=== PATIENT | female | born 1945 | race Caucasian/White ===

== ENCOUNTER 2020-11-14 16:44 | Inpatient (IN) | payer OTHER, MEDICAID, SELFPAY ==
[~2020-11-14] VITALS: Ht 167.6 cm; Wt 51.7 kg
[2020-11-14 16:44] VITALS: BP 144/78
--- NOTE | 2020-11-14 16:44 | NUR ---
PT BIBA AND PLACED IN BED 5.
[2020-11-14] MEDS ORDERED: cefTRIAXone 1,000 MG in DEXT 5% MINI-BAG PLUS 50 ML IV ONE (16:50)
[2020-11-14] MEDS ORDERED: NACL 0.9% 1,000 ML IV SCH (16:50)
--- NOTE | 2020-11-14 16:51 | NUR ---
Collected OLEG FLORES, OLEG CHAN gave to bottle labeler.
[2020-11-14] MEDS ORDERED: cefTRIAXone 1,000 MG VIAL ONE (17:00)
--- NOTE | 2020-11-14 17:02 | NUR ---
Established IV to right upper arm 20G, good blood return. Collected blood and gave to labor arbitrator at pt bedside.
--- NOTE | 2020-11-14 17:06 | NUR ---
Pt ambulated to restroom for UA collection.
[2020-11-14 17:08] LABS: BASOPHILS % (AUTO) 0.6 % (0.0-2.0); EOSINOPHILS % (AUTO) 0.5 % (0.0-4.0); HEMATOCRIT 40.6 % (36-48); HEMOGLOBIN 14.1 g/dL (12.0-16.0); LYMPHOCYTES # (AUTO) 1.5 K/uL (2.5-16.5); LYMPHOCYTES % (AUTO) 22.2 % (20.5-51.1); MEAN CORPUSCULAR HEMOGLOBIN 35 pg (27-31); MEAN CORPUSCULAR HGB CONC 35 g/dL (33-37); MONOCYTES # (AUTO) 0.4 K/uL (0.8-1.0); MONOCYTES % (AUTO) 5.9 % (1.7-9.3); NEUTROPHILS # (AUTO) 4.9 K/uL (1.8-7.7); NEUTROPHILS % (AUTO) 70.8 % (42.2-75.2); PLATELET COUNT (AUTO) 219 K/uL (140-450); RED BLOOD CELL COUNT(AUTO) 3.98 MIL/uL (4.20-5.40); RED CELL DISTRIBUTION WIDTH 13.7 % (11.6-13.7); WHITE BLOOD COUNT (AUTO) 6.9 K/uL (4.8-10.8)
--- NOTE | 2020-11-14 17:10 | NUR ---
Personal belongings inventoried and placed in belongings bag. Pt label placed on the outside and security called to take belongings. Hola from security took belongings for holding.
--- NOTE | 2020-11-14 17:14 | NUR ---
porcelain technician at pt bedside.
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
[2020-11-14 17:34] LABS: SALICYLATE 7.7 mg/dL (2.8-20.0)
--- NOTE | 2020-11-14 17:39 | NUR ---
DR AYALA AT BEDSIDE EVALUATING PT
--- NOTE | 2020-11-14 17:41 | NUR ---
TELEPSYCH CONSULT PLACED. MONITOR SET TO BEDSIDE.
[2020-11-14 17:43] LABS: ACETAMINOPHEN < 0.5 ug/ml (10-30)
[2020-11-14 17:47] LABS: ANION GAP 17.6 (8-16); CHLORIDE 99 mmol/L (98-107); CREATININE 0.9 mg/dL (0.6-1.3); GLUCOSE 106 mg/dL (74-106); POTASSIUM 3.6 mmol/L (3.5-5.1); SODIUM SERUM 136 mmol/L (136-145); UREA NITROGEN, BLOOD 9 mg/dL (7-18)
[2020-11-14 17:52] LABS: ALBUMIN 3.2 g/dL (3.4-5.0); ASPARTATE AMINOTRANSFERASE 14 U/L (15-37)
[2020-11-14 18:08] LABS: TOTAL BILIRUBIN 0.7 mg/dL (0.0-1.0)
--- NOTE | 2020-11-14 18:20 | NUR ---
Taken to CT via riri
--- NOTE | 2020-11-14 18:29 | NUR ---
Patient returned from CT via gurney. Placed back onto cardiac surgeon; IVF and IV ABX continued. Bed locked in lowest position, side rails x 2, call light in reach.
[2020-11-14 18:47] LABS: BARBITURATE, URINE NEGATIVE ng/ml (NEG <=200); BENZODIAZEPINE, URINE NEGATIVE ng/mL (NEG <=200); CANNABINOID, URINE NEGATIVE ng/mL (NEG <=50); COCAINE, URINE NEGATIVE ng/mL (NEG <=300); OPIATE, URINE NEGATIVE ng/mL (NEG <=2000); PHENCYCLIDINE SCREEN,URINE NEGATIVE ng/mL (NEG <=25)
[2020-11-14 18:49] LABS: APPEARANCE,URINE CLEAR (CLEAR); BILIRUBIN,URINE NEGATIVE (NEGATIVE); BLOOD, URINE NEGATIVE (NEGATIVE); COLOR,URINE YELLOW (YELLOW); LEUKOCYTE ESTERASE ,URINE NEGATIVE (NEGATIVE); NITRITE, URINE NEGATIVE (NEGATIVE); UGLUCOSE NEGATIVE (NEGATIVE)
--- NOTE | 2020-11-14 19:14 | NUR ---
Pt report given to Roro. Transfer of care at this time.
--- NOTE | 2020-11-14 19:15 | NUR ---
RECIEVED REPORT FROM CHRYSTAL LAMA FOR CONTINUITY OF CARE.
--- NOTE | 2020-11-14 19:18 | NUR ---
JORDON, WITH ASSOCIATE TELEMED CALLED - DUE TO HIGH CALL VOLUME THERE WILL BE A DELAY ON THE PSYCH CONSULT; PER REQUEST CANCELLED DUE TO PT BEING ADMITTED
--- NOTE | 2020-11-14 19:25 | NUR ---
PT AMBULATED TO RESTROOM AND BACK TO BED WITH STEADY GAIT.
--- NOTE | 2020-11-14 19:49 | NUR ---
ATTEMPTED TO CALL PTS SONASHER WITH # ON FILE WELL # PROVIDED BY PT ([phone]). PHONE NUMBER ON FILE IS INCORRECT, AND NO ANSWER ON OTHER # PROVIDED.
--- NOTE | 2020-11-14 19:53 | NUR ---
Patient will be admitted to care of MD FRANCISCA. Admited to [facility]. Will go to room 106A. Belongings list completed. Report to CHRYSTAL PEPPER.
--- NOTE | 2020-11-14 19:58 | NUR ---
PT TAKEN TO [facility] 106A VIA W.C. WITH RAYMUNDO RUIZ.
[2020-11-14 20:05] VITALS: BP 145/90
--- NOTE | 2020-11-14 20:05 | NUR ---
PT ARRIVED TO UNIT VIA WHEELCHAIR. PT IS MED SURG PT. AWAKE AND ALERT. A&OX3. RESPONDS TO QUESTIONS APPROPRIATELY. ON RA WITH BREATHING UNLABORED. NO RESPIRATORY DISTRESS NOTED. PT IS AMBULATORY WITH ASSISTANCE. SKIN IS WARM, DRY, AND INTACT. IV IS IN THE RIGHT AC 20 GAUGE SALINE LOCKED. PLAN OF CARE DISCUSSED. FALL PRECAUTIONS WILL BE PUT IN PLACE. PT IS STABLE. WILL MONITOR. BED ALARM ON.
[2020-11-14] MEDS: DEXT 5% /NACL 0.9% 1,000 ML IV SCH (21:00)
--- NOTE | 2020-11-14 21:00 | NUR ---
CHARGE NURSE, STEPHANIE RN, SPOKE WITH SON OF PT REQUESTED BY PT. ANEESH'S PHONE NUMBER . ADMISSION QUESTIONS ASKED. SON IS NOW AWARE OF ADMISSION TO HOSPITAL. ALL QUESTIONS ANSWERED.
[2020-11-14] MEDS ORDERED: DOCUSATE SODIUM 100 MG GELCAP PO PRN (21:20)
[2020-11-14] MEDS ORDERED: ONDANSETRON 4 MG/2 ML VIAL IM/IVP PRN (21:20)
[2020-11-14] MEDS ORDERED: guaiFENesin DM 200/20 MG-10 ML 10 ML UDC PO PRN (21:20)
[2020-11-14] MEDS ORDERED: ACETAMINOPHEN 325 MG TAB PO PRN (21:20)
[2020-11-14] MEDS ORDERED: HYDROcodone/APAP 7.5/325 MG 1 TAB PO PRN (21:20)
[2020-11-14 21:50] LABS: PROTHROMBIN TIME 9.4 secs (10.8-13.4)
[2020-11-14] MEDS: lisinopriL 20 MG TAB PO SCH (21:52)
[2020-11-14] MEDS: NACL 0.9% 1,000 ML IV SCH (21:55)
[2020-11-14 22:00] LABS: CHOL/HDL RATIO 1.9 (1-4.5); FREE T4 (FREE THYROXINE) 1.13 ng/dL (0.76-1.46); MAGNESIUM 1.9 mg/dL (1.8-2.4); PHOSPHORUS 3.1 mg/dL (2.5-4.9); THYROID STIMULATING HORMONE 4.14 uIU/mL (0.34-3.74)
--- NOTE | 2020-11-14 23:00 | NUR ---
PT IS STABLE. NO DISTRESS NOTED. PT SAYS SHE WANTS TO GO HOME IN THE MORNING. PT IS CONCERNED FOR CATS AT HOME. BED IS IN THE LOWEST POSITION AND CALL LIGHT WITHIN REACH. PT INSTRUCTED TO CALL [employer] THERAPIST LIGHT FOR HELP WHEN NEEDING TO AMBULATE.
--- NOTE | 2020-11-15 01:19 | NUR ---
ROUNDED ON PT. SHE IS NOW IN ROOM 109 B, CLOSER TO NURSES STATION PT KEPT GETTING UP FROM BED WITHOUT CALLING. PT IS FALL RISK. BED ALARM ON. NO DISTRESS NOTED. PT IS SLEEPING IN SEMI FOWLERS POSITION. NO PAIN NOTED EITHER. WILL CONTINUE TO MONITOR.
--- NOTE | 2020-11-15 03:30 | NUR ---
PT IS ASLEEP. BREATHING IS UNLABORED. IV FLUIDS ARE INFUSING ORDERED. BED ALARM ON. PT STABLE.
[2020-11-15 04:00] VITALS: BP 126/75
--- NOTE | 2020-11-15 05:30 | NUR ---
PT IS UP TO THE RESTROOM WITH IV POLE. PT'S GAIT IS UNSTEADY. STANDBY ASSISTANCE IS PROVIDED TO ENSURE SAFETY. PT IS STABLE. NO DISTRESS NOTED. A&OX3.
[2020-11-15 06:34] LABS: BASOPHILS # (AUTO) 0.1 K/uL (0.00-0.22); BASOPHILS % (AUTO) 0.9 % (0.0-2.0); EOSINOPHILS # (AUTO) 0.1 K/uL (0-0.4); EOSINOPHILS % (AUTO) 0.9 % (0.0-4.0); HEMATOCRIT 40.2 % (36-48); HEMOGLOBIN 13.9 g/dL (12.0-16.0); LYMPHOCYTES # (AUTO) 1.8 K/uL (2.5-16.5); LYMPHOCYTES % (AUTO) 27.6 % (20.5-51.1); MEAN CORPUSCULAR HEMOGLOBIN 35 pg (27-31); MEAN CORPUSCULAR HGB CONC 34 g/dL (33-37); MEAN CORPUSCULAR VOLUME 101.4 fL (80-94); MONOCYTES # (AUTO) 0.5 K/uL (0.8-1.0); MONOCYTES % (AUTO) 7.1 % (1.7-9.3); NEUTROPHILS % (AUTO) 63.5 % (42.2-75.2); PLATELET COUNT (AUTO) 191 K/uL (140-450); RED BLOOD CELL COUNT(AUTO) 3.97 MIL/uL (4.20-5.40); RED CELL DISTRIBUTION WIDTH 13.9 % (11.6-13.7); WHITE BLOOD COUNT (AUTO) 6.4 K/uL (4.8-10.8)
[2020-11-15 06:58] LABS: ANION GAP 10.8 (8-16); CARBON DIOXIDE 25.1 mmol/L (21-32); CHLORIDE 106 mmol/L (98-107); CREATININE 0.8 mg/dL (0.6-1.3); GLUCOSE 91 mg/dL (74-106); POTASSIUM 3.9 mmol/L (3.5-5.1); SODIUM SERUM 138 mmol/L (136-145); UREA NITROGEN, BLOOD 8 mg/dL (7-18)
--- NOTE | 2020-11-15 07:10 | NUR ---
ENDORSED PT TO DAY SHIFT NURSE FOR CONTINUITY OF CARE. PT IS STABLE AT THIS TIME. PLAN OF CARE DISCUSSED.
--- NOTE | 2020-11-15 07:27 | NUR ---
RECEIVED REPORT FROM SURFACE WATER MANAGER FOR CONTINUITY OF CARE. POC DISCUSSED. PT IS CURRENTLY USING THE RESTROOM WITH NO SIGNS OF ACUTE DISTRESS. ON ROOM AIR WITH CHEST RISING AND FALLING EVEN AND UNLABORED. PT HAS A RIGHT UPPER ARM 20 GAUGE RUNNING NS AT 60 ML/HR. PT ON DROPLET PRECAUTIONS FOR PENDING PCR. SAFETY MEASURES IN PLACE, CALL LIGHT WITHIN REACH. WILL CONTINUE TO MONITOR.
[2020-11-15 08:00] VITALS: BP 97/54
--- NOTE | 2020-11-15 08:06 | NUR ---
SITTER AT ROOM, PT REPEATED KEEPS GETTING OUT OF BED. REMOVED IV SITE. SAFETY MEASURES IN PLACE, WILL CONTINUE TO MONITOR.
--- NOTE | 2020-11-15 08:34 | NUR ---
NEW IV STARTED ON LEFT HAND 22GAUGE, RUNNING 60 ML/HR. SAFETY MEASURES IN PLACE. CALL LIGHT WITHIN REACH. WILL CONTINUE TO MONITOR.
--- NOTE | 2020-11-15 09:05 | NUR ---
PATIENT HAS BEEN SCREENED AND CATEGORIZED HIGH NUTRITION RISK. PATIENT WILL BE SEEN WITHIN 1-2 DAYS OF ADMISSION. 11/15/20-11/16/[address]
[2020-11-15] MEDS: PANTOPRAZOLE 40 MG TABEC PO SCH (09:16)
--- NOTE | 2020-11-15 09:16 | NUR ---
RT AT BEDSIDE.
--- NOTE | 2020-11-15 10:24 | NUR ---
SITTER AT BEDSIDE. PT IS IN STABLE CONDITION WITH NO SIGNS OF ACUTE DISTRESS. WILL CONTINUE TO MONITOR.
[2020-11-15] MEDS: DEXT 5% /NACL 0.9% 1,000 ML IV SCH (11:45)
--- NOTE | 2020-11-15 12:57 | NUR ---
VOICEMAIL MESSAGE LEFT TO DR. GOFF CELLPHONE REGARDING THE CONSULT. AWAITING FOR CALL BACK.
[2020-11-15] MEDS: NACL 0.9% 1,000 ML IV SCH (14:21)
--- NOTE | 2020-11-15 14:21 | NUR ---
11/15/20 RD INITIAL ASSESSMENT COMPLETED PLEASE REFER TO NUTRITION ASSESSMENT UNDER CARE ACTIVITY FOR ESTIMATED NUTRITIONAL NEEDS. 1. PENDING SWALLOWING EVALUATION 2. CURRENTLY ON A MECHANICAL SOFT DIET 3. RECOMMEND ENSURE BID 4. RD TO FOLLOW-UP 3-5 DAYS, MODERATE RISK SIL NÚÑEZ, RD
[2020-11-15 16:00] VITALS: BP 132/78
[2020-11-15] MEDS: lisinopriL 20 MG TAB PO SCH (17:00)
--- NOTE | 2020-11-15 17:22 | NUR ---
PT WAS SEEN FOR DYSPHAGIA. PT WAS ABLE TO SAFELY SWALLOW PUREE DIET WITH THIN LIQUID WITHOUT S/S OF ASPIRATION. RECOMMENDATION PUREE DIET WITH THIN LIQUID
--- NOTE | 2020-11-15 17:25 | NUR ---
Packet faxed to: [facility] Elías Carrillo [facility]
--- NOTE | 2020-11-15 19:24 | NUR ---
PT ENDORSED TO HUMAN CAPITAL MANAGER FOR CONTINUITY OF CARE, PT IN STABLE CONDITION.
--- NOTE | 2020-11-15 19:25 | NUR ---
RECEIVED BEDSIDE ENDORSEMENT FROM AM SHIFT RN. PATIENT IS CONFUSED. W/ 1:1 SITTER. IVF INFUSING, SAFETY MEASURES IN PLACE, LOW BED IN PLACE, PLAN OF CARE DISCUSSED, CALL LIGHT WITHIN REACH.
[2020-11-15 20:00] VITALS: BP 136/58
[2020-11-15] MEDS: QUEtiapine FUMARATE 25 MG TAB PO SCH (20:33)
[2020-11-15] MEDS: ZOLPIDEM 5 MG TAB PO PRN (20:34)
--- NOTE | 2020-11-15 20:45 | NUR ---
DUE MEDS GIVEN ORDERED, TOLERATED WELL.
--- NOTE | 2020-11-16 00:50 | NUR ---
RECEIVED A CALL FROM EMILY CROFT AT [facility]. SHE SAID THAT SHE'LL TALK TO HER DON REGARDING THE PATIENT AND THAT THEY WILL GIVE US A CALL BACK TO LET US KNOW IF THEY'LL BE ABLE TO ACCEPT THE PATIENT.
--- NOTE | 2020-11-16 02:47 | NUR ---
SLEEPING, KEPT COMFORTABLE, WILL CONTINUE TO MONITOR.
[2020-11-16 04:00] VITALS: BP 129/66
--- NOTE | 2020-11-16 04:00 | NUR ---
V/S TAKEN, KEPT WARM AND COMFORTABLE.
[2020-11-16] MEDS: DEXT 5% /NACL 0.9% 1,000 ML IV SCH (04:25)
[2020-11-16 06:35] LABS: BASOPHILS % (AUTO) 0.6 % (0.0-2.0); EOSINOPHILS % (AUTO) 0.8 % (0.0-4.0); HEMATOCRIT 38.5 % (36-48); HEMOGLOBIN 12.9 g/dL (12.0-16.0); LYMPHOCYTES # (AUTO) 1.5 K/uL (2.5-16.5); LYMPHOCYTES % (AUTO) 26.3 % (20.5-51.1); MEAN CORPUSCULAR HEMOGLOBIN 35 pg (27-31); MEAN CORPUSCULAR HGB CONC 34 g/dL (33-37); MONOCYTES # (AUTO) 0.4 K/uL (0.8-1.0); MONOCYTES % (AUTO) 6.7 % (1.7-9.3); NEUTROPHILS # (AUTO) 3.6 K/uL (1.8-7.7); NEUTROPHILS % (AUTO) 65.6 % (42.2-75.2); PLATELET COUNT (AUTO) 178 K/uL (140-450); RED BLOOD CELL COUNT(AUTO) 3.73 MIL/uL (4.20-5.40); WHITE BLOOD COUNT (AUTO) 5.5 K/uL (4.8-10.8)
[2020-11-16] MEDS: NACL 0.9% 1,000 ML IV SCH ×2 (06:40→21:27)
--- NOTE | 2020-11-16 06:52 | NUR ---
PATIENT STABLE, NO DISTRESS, NO ACUTE EVENTS OVERNIGHT. ALL NEEDS ATTENDED, KEPT COMFORTABLE, SAFETY MEASURES IN PLACE, CONTINUE ON 1:1 SITTER.
[2020-11-16 07:13] LABS: ANION GAP 8.6 (8-16); CARBON DIOXIDE 25.7 mmol/L (21-32); CHLORIDE 109 mmol/L (98-107); CREATININE 0.8 mg/dL (0.6-1.3); GLUCOSE 80 mg/dL (74-106); POTASSIUM 3.3 mmol/L (3.5-5.1); SODIUM SERUM 140 mmol/L (136-145); UREA NITROGEN, BLOOD 13 mg/dL (7-18)
--- NOTE | 2020-11-16 07:22 | NUR ---
PATIENT STABLE. BEDSIDE ENDORSEMENT GIVEN TO AM SHIFT RN FOR CONTINUITY OF CARE.
--- NOTE | 2020-11-16 07:26 | NUR ---
PATIENT REPORT RECEIVED FROM NIGHTSHIFT RN. NO S/SX OF DISTRESS. SITTER AT BESIDE. ALL SAFETY MEASURES IN PLACE.
[2020-11-16] MEDS: lisinopriL 20 MG TAB PO SCH (08:25)
[2020-11-16] MEDS: PANTOPRAZOLE 40 MG TABEC PO SCH (08:25)
--- NOTE | 2020-11-16 08:30 | NUR ---
MEDICATIONS GIVEN PER MD ORDER. PT EDUCTED. REINFORCEMENT NEEDED. PT TOLERATED WELL. NO S/SX OF DISTRESS AT THIS TIME. ALL SAFETY MEASURES IN PLACE
--- NOTE | 2020-11-16 08:51 | NUR ---
DC PLANNING: CALLED PT'S SON FLOR AT [phone] LEFT A MESSAGE REGARDING DISCHARGE PLAN AND RECOMMENDATIONS FROM PSYCH MD. CALLED STATED CATIE [facility]ED[facility] IS RESPONSIBLE FOR DC PLAN AND HOSPITAL STAY. TAYLOR PIEDRA [phone] SPOKE WITH THE FURNITURE CLEANER ,REQUESTED TO SPEAK WITH THE CM FOR REGARDING DC PLAN. PUT ME ON HOLD AND STATED DR PIEDRA WILL CALL BACK. CM TO FOLLOW Addendum: 11/16/20 at 1050 by Elizabeth Mendoza RN DC PLANNING: RECEIVED A CALL FROM PT'S SON FLOR [phone] DISCUSSED THE PATIENT SITUATION, AND DC PLAN TO PSYCH FACILITY. PER SON HE LIVES IN [place] AND PT LIVES BY HERSELF, AWARE OF SHE HAS DEMENTIA AND WOULD LIKE TO DISCUSS WITH MD'S. I INFORMED HIM MD MIGHT CALL HIM ANYTIME AND TO HAVE HIS PHONE WITH HIM. PROVIDE ASHER'S PHONE # TO DR ESPINOSA AND DR GOFF. CM TO FOLLOW Addendum: 11/19/20 at 1632 by Elizabeth Mendoza RN DC PLANNING: STILL AWAITING FOR AUTH # CALLED [employer] LEFT A MESSAGE FOR [facility] AND FOR [facility] [place] [phone] EXT 2013 NOTIFIED THEM THAT [facility] ACC[facility]PTING PATIENT CAN GO TO 14 C. CM TO FOLLOW
--- NOTE | 2020-11-16 10:08 | NUR ---
PER MAT REPAIRER REPORT PATIENT HAS HAD FOUR BOWEL MOVEMENTS. LOOSE AND MUSTERED COLOR. WILL ASSESS NEXT BOWEL MOVEMENT.
--- NOTE | 2020-11-16 10:55 | NUR ---
PT ROUNDED ON. PT. FLACC SCORE (0) . ALL SAFETY MEASURES ARE IN PLACE
[2020-11-16 12:07] LABS: T4 (THYROXINE) 5.2 ug/dL (4.5-12.0)
--- NOTE | 2020-11-16 14:14 | NUR ---
PATIENT RESTING IN BED EYE CLOSED EASY TO AROUSE. BREATHING IS SYMMETRICAL AND UNLABORED. PATIENT ON ROOM AIR NO DISTRESS NOTED. SITTER AT BEDSIDE. ALL SAFETY MEASURES IN PLACE.
[2020-11-16] MEDS: POTASSIUM CHLORIDE 10 MEQ TABER PO PRN (14:51)
--- NOTE | 2020-11-16 14:52 | NUR ---
K LEVEL 3.3 PRN MEDICATION GIVEN PER MD ORDERS. EDUCATED PATIENT ON MEDICATION.REINFORCEMENT NEEDED. PATIENT ABLE TO SWALLOW WITHOUT DIFFICULTY. SITTER AT BEDSIDE ALL SAFETY MEASURES IN PLACE
[2020-11-16 16:00] VITALS: BP 124/66
--- NOTE | 2020-11-16 16:44 | NUR ---
Fax packet to the following facilities Rafa Carrillo [facility] Malini Sheppard [facility]is Cow[facility]
--- NOTE | 2020-11-16 17:05 | NUR ---
PATIENTS IV INFILTRATED. PATIENT COMPLAIN OF PAIN TO SITE. NOT ABLE TO FLUSH FEELING RESISTANCE. IV REMOVED CATHETER IN INTACT. NEW IV STARTED TO RIGHT FOREARM 20G. PATIENT TOLERATED WELL. SITTER AT BEDSIDE. SAFETY MEASURES IN PLACE
--- NOTE | 2020-11-16 18:15 | NUR ---
SPOKE TO ADEOLA FROM [facility] REGARDING CONTINUITY OF CARE. HE STATES HE WILL TALK TO DIRECTOR ABOUT POSSIBLE PLACEMENT
--- NOTE | 2020-11-16 19:15 | NUR ---
ENDORSED REPORT TO NIGHTSHIFT NURSE OF PATIENT FOR CONTINUITY CARE. PATIENT STABLE NO ACUTE DISTRESS NOTED. PATIENT REMAINS IN BED. SITTER DISCONTINUED PER MD ORDER. BED ALARM. SAFETY MEASURES IN PLACE.
--- NOTE | 2020-11-16 19:16 | NUR ---
RECEIVED BEDSIDE ENDORSEMENT FROM AM SHIFT RN. PATIENT IS AAOX1 TO PERSON, CONFUSED, ON ROOM AIR, NO DISTRESS, DENIES PAIN, IVF INFUSING, SAFETY MEASURES IN PLACE, BED ALARM IN PLACE, PLAN OF CARE, DISCUSSED, WILL CLOSELY MONITOR PATIENT, CALL LIGHT WITHIN REACH.
[2020-11-16 20:00] VITALS: BP 92/44
[2020-11-16] MEDS: QUEtiapine FUMARATE 25 MG TAB PO SCH (20:14)
--- NOTE | 2020-11-16 20:15 | NUR ---
DUE MEDS GIVEN ORDERED, TOLERATED WELL, WILL CONTINUE TO MONITOR, CALL LIGHT WITHIN REACH.
[2020-11-16] MEDS: ZOLPIDEM 5 MG TAB PO PRN (20:42)
--- NOTE | 2020-11-16 21:00 | NUR ---
SPOKE TO ADEOLA FROM [facility] AT 1999, HE SAID THAT THEIR EXERCISE MANAGER IS ASKING FOR A NEURO CONSULT TO SEE IF THERE IS ANY METABOLIC PROCESS GOING ON IN PT'S BRAIN. INFORMED HEAT WELDER PLASTICS DR. LINCOLN. DR. LINCOLN ORDERED NEURO CONSULT TO DR. MOBLEY. NOTED AND CARRIED OUT.
--- NOTE | 2020-11-16 21:28 | NUR ---
IVF FINISHED AND REPLACED W/ NEW 1 L NS AT 60 ML/HR ORDERED, IV SITE INTACT AND SECURED.
--- NOTE | 2020-11-16 23:52 | NUR ---
Received call from [facility], not able to medically accommodate patient
--- NOTE | 2020-11-17 00:30 | NUR ---
CHECKED PATIENT, ASLEEP, RESPIRATION EVEN AND UNLABORED, WILL CONTINUE TO MONITOR, CALL LIGHT WITHIN REACH.
--- NOTE | 2020-11-17 03:31 | NUR ---
ASSISTED PATIENT IN USING THE COMMODE. BM X1, NOTED, VOID X1.
[2020-11-17 04:00] VITALS: BP 131/67
--- NOTE | 2020-11-17 04:00 | NUR ---
V/S TAKEN, KEPT COMFORTABLE, CALL LIGHT WITHIN REACH.
[2020-11-17 06:26] LABS: ANION GAP 11.8 (8-16); CARBON DIOXIDE 23.1 mmol/L (21-32); CHLORIDE 109 mmol/L (98-107); CREATININE 0.7 mg/dL (0.6-1.3); GLUCOSE 85 mg/dL (74-106); POTASSIUM 3.9 mmol/L (3.5-5.1); SODIUM SERUM 140 mmol/L (136-145); UREA NITROGEN, BLOOD 13 mg/dL (7-18)
[2020-11-17 06:36] LABS: BASOPHILS % (AUTO) 0.5 % (0.0-2.0); EOSINOPHILS % (AUTO) 0.7 % (0.0-4.0); HEMATOCRIT 35.4 % (36-48); HEMOGLOBIN 12.2 g/dL (12.0-16.0); LYMPHOCYTES # (AUTO) 1.2 K/uL (2.5-16.5); LYMPHOCYTES % (AUTO) 21.4 % (20.5-51.1); MEAN CORPUSCULAR HEMOGLOBIN 35 pg (27-31); MEAN CORPUSCULAR HGB CONC 35 g/dL (33-37); MEAN CORPUSCULAR VOLUME 101.1 fL (80-94); MONOCYTES # (AUTO) 0.5 K/uL (0.8-1.0); MONOCYTES % (AUTO) 7.9 % (1.7-9.3); NEUTROPHILS % (AUTO) 69.5 % (42.2-75.2); PLATELET COUNT (AUTO) 167 K/uL (140-450); RED CELL DISTRIBUTION WIDTH 13.8 % (11.6-13.7); WHITE BLOOD COUNT (AUTO) 5.8 K/uL (4.8-10.8)
--- NOTE | 2020-11-17 06:48 | NUR ---
PATIENT STABLE, NO DISTRESS, ALL NEEDS ATTENDED, NO ACUTE EVENTS OVERNIGHT. SAFETY MEASURES IN PLACE, BED ALARM IN PLACE, CALL LIGHT WITHIN REACH.
--- NOTE | 2020-11-17 07:22 | NUR ---
PATIENT STABLE, BEDSIDE ENDORSEMENT GIVEN TO AM SHIFT RN FOR CONTINUITY OF CARE.
--- NOTE | 2020-11-17 07:24 | NUR ---
RECEIVED REPORT FROM MACHINIST HELPER MARINE NURSE FOR CONTINUITY OF CARE. POC DISCUSSED. PT IS IN BED ON ROOM AIR WITH CHEST RISING AND FALLING. PT HAS A RIGHT FOREARM 20 GAUGE RUNNING NS AT 60 ML/HR. IV IS PATENT AND INTACT. PT IS ALERT AND ORIENTED X1. BED ALARM ON. ALL SAFETY MEASURES IN PLACE, WILL CONTINUE TO MONITOR.
[2020-11-17 08:00] VITALS: BP 104/60
--- NOTE | 2020-11-17 08:03 | NUR ---
ASSISTED TO THE BEDSIDE COMMAD. PT IS ALERT AND ORIENTED X3, ABLE TO GIVE NAME AND DATE OF , WHERE SHE IS ATE, MONTH. SHE ALSO WAS ABLE TO EXPLAIN SLIGHTLY WHY SHE IS IN THE HOSPITAL. PT SKIN INTACT. PT IS ASKING FOR THE DOCTOR. SCHEDULED MEDICATION ADMINISTERED. ALL SAFETY MEASURES IN PLACE. WILL CONTINUE TO MONITOR.
[2020-11-17] MEDS: lisinopriL 20 MG TAB PO SCH (08:15)
[2020-11-17] MEDS: PANTOPRAZOLE 40 MG TABEC PO SCH (08:15)
--- NOTE | 2020-11-17 09:12 | NUR ---
PT ASSISTED TO THE BEDSIDE COMMODE. PT NEEDS SLIGHT REORIENTATION BUT IS AWARE SHE IS IN THE HOSPITAL. PT WANTS TO LEAVE. EDUCATION PROVIDED THAT DR. PEREZ NEEDS TO ASSESS HER. PT INSISTING ON WANTING TO GO HOME. CHARGE NURSE NOTIFIED. PT IS ON 5150 HOLD. ALL SAFETY MEASURES IN PLACE. CALL LIGHT WITHIN REACH. WILL CONTINUE TO MONITOR.
--- NOTE | 2020-11-17 09:54 | NUR ---
PT ASSISTED TO BEDSIDE COMMODE AND BACK IN BED. BED ALARM BACK ON. PT IN STABLE CONDITION. SAFETY MEASURES IN PLACE. CALL LIGHT WITHIN REACH. WILL CONTINUE TO MONITOR.
--- NOTE | 2020-11-17 10:53 | NUR ---
PT ASSISTED TO BEDSIDE COMMODE AND BACK TO BED. BED ALARM ON. PT IN STABLE CONDITION. ALL SAFETY MEASURES IN PLACE. CALL LIGHT WITHIN REACH. WILL CONTINUE TO MONITOR.
--- NOTE | 2020-11-17 11:20 | NUR ---
CALLED AND SPOKE WITH ASHER, PTS SON, INFORMED HIM OF THE DRS PLAN TO DC TO PSYCH FACILITY DUE TO PTS CONFUSION. SON VERBALIZED HE WILL NOT BE BACK IN TOWN UNTIL THURSDAY. NO OTHER FAMILY IN THE AREA. SON ALSO VERBALIZED PT HAS MULTIPLE CATS AT HOME, BUT UNABLE TO PROVIDE [place] PHONE NUMBER. PT IS UNABLE TO PROVIDE [place] PHONE NUMBER WELL. ALSO INFORMED THE SON OF THE CONSULT WITH DR. PEREZ, AND DR. MOBLEY. ALL QUESTIONS ANSWERED OF THE SON.
[2020-11-17] MEDS: NACL 0.9% 1,000 ML IV SCH (11:39)
--- NOTE | 2020-11-17 12:19 | NUR ---
ASSISTED PT TO BEDSIDE COMMODE AND BACK TO BED. PROVIDED CLEAN SHEETS AND UNDERWEAR. PT VERBALIZED ALL NEEDS ARE MET EXCEPT WANTING TO SPEAK WITH THE DOCTOR SO SHE CAN GO HOME. ALL SAFETY MEASURES IN PLACE. CALL LIGHT WITHIN REACH. BED ALARM ON. WILL CONTINUE TO MONITOR.
--- NOTE | 2020-11-17 13:11 | NUR ---
ASSISTED TO BEDSIDE COMMODE AND BACK TO BED. PT VERBALIZED WANTING TO GO HOME AND TIRED OF WAITING FOR THE DOCTOR. CHARGE NURSE INFORMED. ALL SAFETY MEASURES IN PLACE, CALL LIGHT WITHIN REACH. WILL CONTINUE TO MONITOR.
--- NOTE | 2020-11-17 13:12 | NUR ---
SPOKE WITH PTS SISTER, ASKED PT IF IT IS OKAY I SPOKE WITH THE SISTER, PT AGREED. ALL QUESTIONS ANSWERED.
--- NOTE | 2020-11-17 14:14 | NUR ---
PT ASSISTED TO THE COMMODE AND BACK TO BED. PT SPOKE WITH DR. CONNER 10 MINUTES PRIOR BUT DOES NOT REMEMBER. REMINDING PT THAT SHE IS HERE FOR SAFETY AND DRS ARE WORKING DILIGENTLY ON FINDING A SOLUTION DUE TO PTS CONFUSION AND STATE OF MIND. REORIENTATED. PT IS NOW IN BED RESTING, WATCHING TV. BED ALARM ON. ALL SAFETY MEASURES IN PLACE. CALL LIGHT WITHIN REACH. WILL CONTINUE TO MONITOR.
--- NOTE | 2020-11-17 15:41 | NUR ---
PT IS RESTING COMFORTABLY IN BED, WITH RESPIRATIONS EVEN AND UNLABORED. ALL SAFETY MEASURES IN PLACE. BED ALARM ON. CALL LIGHT WITHIN REACH. WILL CONTINUE TO MONITOR.
[2020-11-17 16:00] VITALS: BP 111/70
--- NOTE | 2020-11-17 16:41 | NUR ---
WAS ABLE TO HAVE CONVERSATION WITH PT ABOUT HER POC. EXPLAINED FOR HER SAFETY WE CAN'T SEND HER HOME ON HER OWN. THAT SHE WILL EITHER GO TO A PSYCH FACILITY OR WAIT UNTIL HER SON, ASHER IS IN TOWN ON THURSDAY, PER DR. CARLSON. PT VERBLALIZED SHE UNDERSTOOD BUT WAS FRUSTRATED AND IS READY TO GO HOME NOW. ALL SAFETY MEASURES IN PLACE. CALL LIGHT WITHIN REACH. WILL CONTINUE TO MONITOR.
--- NOTE | 2020-11-17 18:22 | NUR ---
PT BECAME IRRITABLE ABOUT THE BED ALARM AND WANTS TO GO HOME. REORIENTED THE PT AND REMINDED HER THAT SHE SPOKE WITH DR. CARLSON EARLIER TODAY AND THE DRS ARE WORKING ON A PLAN FOR DC. ALSO REMINDED HER THAT WE HAVE SPOKE WITH HER SON, ASHER AND HE IS AWARE AND WILL BE BACK HOME THURSDAY. PT GOES THROUGH SPURTS OF MORE CONFUSION THAN OTHER TIMES. NEEDS CONSISTENT REORIENTATION. AFTER REORIENTING, PT SETTLED BACK INTO BED AND STARTED TO EAT HER DINNER. SAFETY MEASURES IN PLACE, BED ALARM ON. CALL LIGHT WITHIN REACH. WILL CONTINUE TO MONITOR.
--- NOTE | 2020-11-17 19:06 | NUR ---
DR. MOBLEY TEXTED ABOUT CONSULT FOR PT.
--- NOTE | 2020-11-17 19:21 | NUR ---
PT ENDORSED TO CHIEF BUILDING INSPECTOR FOR CONTINUITY OF CARE. POC DISCUSSED. PT IN STABLE CONDITION.
--- NOTE | 2020-11-17 20:00 | NUR ---
PATIENT WAS RECEIVED IN BED AWAKE AND COHERENT,
[2020-11-17] MEDS ORDERED: CRUSHER, PILL MC ONE (20:51)
--- NOTE | 2020-11-17 21:00 | NUR ---
ALL MEDICATIONS DUE WERE GIVEN BY MOUTH TOLERATED WELL, IV ACCES WAS OBTAINED IN PATIENT'S RIGHT FA 20 GAUGE RUBIO.
[2020-11-17] MEDS: QUEtiapine FUMARATE 25 MG TAB PO SCH (21:41)
[2020-11-17] MEDS: DONEPEZIL 10 MG TAB PO SCH (21:42)
--- NOTE | 2020-11-17 23:00 | NUR ---
RN MADE ROUND PATIENT WAS ASLEEP CALMLY IN HER BED.
--- NOTE | 2020-11-18 | NUR ---
MIDNIGHT ROUNDING PATIENT WAS CALMLY ASLEEP
--- NOTE | 2020-11-18 03:00 | NUR ---
0PIV WAS INFILTRATED, NEW IV ACCESS WAS OBTAINED, WITH GOOD BLOOD RETURN FLUSHED WITH 5 ML NSS STARTED THE NSS AT 60 ML/HOUR.
--- NOTE | 2020-11-18 06:00 | NUR ---
PIV GOT INFILTRATED AGAIN PATIENT WAS DOES NOT HOW TO BE CAREFUL WHEN MOVING IN HER BED, BREANA CHARGE NURSE HELPED TO OBTAIN A NEW IV ACCESS 22 GAUGE IN PATIENT'S LEFT FA.
[2020-11-18 06:40] LABS: ANION GAP 11.7 (8-16); CARBON DIOXIDE 23.1 mmol/L (21-32); CHLORIDE 107 mmol/L (98-107); CREATININE 0.7 mg/dL (0.6-1.3); GLUCOSE 77 mg/dL (74-106); POTASSIUM 3.8 mmol/L (3.5-5.1); SODIUM SERUM 138 mmol/L (136-145); UREA NITROGEN, BLOOD 10 mg/dL (7-18)
[2020-11-18 06:41] LABS: BASOPHILS % (AUTO) 0.5 % (0.0-2.0); EOSINOPHILS # (AUTO) 0.1 K/uL (0-0.4); HEMATOCRIT 35.8 % (36-48); HEMOGLOBIN 12.2 g/dL (12.0-16.0); LYMPHOCYTES # (AUTO) 1.7 K/uL (2.5-16.5); LYMPHOCYTES % (AUTO) 31.3 % (20.5-51.1); MEAN CORPUSCULAR HEMOGLOBIN 35 pg (27-31); MEAN CORPUSCULAR HGB CONC 34 g/dL (33-37); MEAN CORPUSCULAR VOLUME 102.7 fL (80-94); MONOCYTES # (AUTO) 0.4 K/uL (0.8-1.0); MONOCYTES % (AUTO) 8.4 % (1.7-9.3); NEUTROPHILS # (AUTO) 3.1 K/uL (1.8-7.7); NEUTROPHILS % (AUTO) 58.8 % (42.2-75.2); PLATELET COUNT (AUTO) 185 K/uL (140-450); RED BLOOD CELL COUNT(AUTO) 3.49 MIL/uL (4.20-5.40); RED CELL DISTRIBUTION WIDTH 13.9 % (11.6-13.7); WHITE BLOOD COUNT (AUTO) 5.3 K/uL (4.8-10.8)
--- NOTE | 2020-11-18 06:55 | NUR ---
ALL REPORTS WERE GIVEN TO INCOMING RN, TRANSFER OF CARE WAS ENDORSED.
--- NOTE | 2020-11-18 07:13 | NUR ---
RECEIVED REPORT FROM ANALYSIS INTERNSHIP NURSE FOR CONTINUITY OF CARE. NO S/S OF ACUTE DISTRESS. PT IS STABLE. ON ROOM AIR WITH CHEST RISING AND FALLING. PT IS RESTING GIN BED COMFORTABLE. ALL SAFETY MEASURES IN PLACE. CALL LIGHT WITHIN REACH. WILL CONTINUE TO MONITOR.
[2020-11-18] MEDS: NACL 0.9% 1,000 ML IV SCH (07:25)
--- NOTE | 2020-11-18 07:34 | NUR ---
LEFT FOREARM IV SITE REMOVED, IV REPORTED TO BE INFILTRATED DURING AUTO LOCATOR BUT WAS NOT REMOVED. PT TOLERATED REMOVAL AND CATHETER INTACT. IV IN RIGHT FOREARM 22 GAUGE.
[2020-11-18 08:00] VITALS: BP 147/82
[2020-11-18] MEDS: MEMANTINE 10 MG TAB PO SCH (08:15)
[2020-11-18] MEDS: PANTOPRAZOLE 40 MG TABEC PO SCH (08:15)
[2020-11-18] MEDS: lisinopriL 20 MG TAB PO SCH (08:20)
--- NOTE | 2020-11-18 08:29 | NUR ---
MORNING MEDICATION ADMINISTERED, MEDICATION ADMINISTRATION PROVIDED. PT VERBALIZED UNDERSTANDING AND TOLERATED ADMINISTRATION. PT EATING BREAKFAST, WATCHING TV. VERBALIZED ALL NEEDS ARE MET AT THIS TIME. BED ALARM ON. ALL SAFETY MEASURES IN PLACE. CALL LIGHT WITHIN REACH. WILL CONTINUE TO MONITOR.
--- NOTE | 2020-11-18 08:33 | NUR ---
(11/18/20) RD FOLLOW UP COMPLETED PLEASE REFER TO NUTRITION PROGRESS NOTE UNDER CARE ACTIVITY FOR ESTIMATED NUTRITION NEEDS. RD RECOMMENDATIONS: 1. CONTINUE ON REGULAR PUREE DIET TOLERATED. 2. CONTINUE ON ENSURE BID TOLERATED. ENSURE BID PROVIDES 700 KCAL AND 40 GM PROTEIN TO HELP MEET EST NUTRITION NEEDS. 3. RD TO FOLLOW-UP 3-5 DAYS, MODERATE RISK MARINO XIONG MS, RDN
--- NOTE | 2020-11-18 08:37 | NUR ---
SPOKE WITH PTS SISTER OVER THE PHONE. PT VERBALIZED IT IS OKAY. ALL QUESTIONS ANSWERED.
--- NOTE | 2020-11-18 09:54 | NUR ---
PT GIVEN A SHOWER WITH ASSISTANCE. PT TOLERATED SHOWER. NEW SHEETS AND GOWN PROVIDED. PT IV DRY, PATENT AND INTACT.
--- NOTE | 2020-11-18 10:43 | NUR ---
ROUNDED ON PT, PT IS RESTING COMFORTABLE IN BED WITH NO SIGNS OF ACUTE DISTRESS. ALL SAFETY MEASURES IN PLACE. CALL LIGHT WITHIN REACH. WILL CONTINUE TO MONITOR.
--- NOTE | 2020-11-18 11:53 | NUR ---
ROUNDED ON PT, PT IS RESTING COMFORTABLE IN BED WITH NO SIGNS OF ACUTE DISTRESS. ALL SAFETY MEASURES IN PLACE. BED ALARM ON. CALL LIGHT WITHIN REACH. WILL CONTINUE TO MONITOR.
--- NOTE | 2020-11-18 13:47 | NUR ---
IV SITE PULLED OUT BY PT. NOTED CONTINUED REDNESS AND EDEMA IN RIGHT ARM FROM INFILTRATED IV. NEW IV SITE STARTED ON LEFT FOREARM 20 GAUGE. PT TOLERATED PROCEDURE. ALL SAFETY MEASURES IN PLACE, CALL LIGHT WITHIN REACH. WILL CONTINUE TO MONITOR.
[2020-11-18] MEDS ORDERED: HYDRAGUARD CREAM TP SCH (13:55)
[2020-11-18 16:00] VITALS: BP 116/68
--- NOTE | 2020-11-18 16:54 | NUR ---
ROUNDED ON PT. PT IS RESTING IN BED COMFORTABLY WITH NO SIGNS OF ACUTE DISTRESS. ALL SAFETY MEASURES IN PLACE. CALL LIGHT WITHIN REACH. WILL CONTINUE TO MONITOR
--- NOTE | 2020-11-18 19:27 | NUR ---
PT ENDORSED TO FARM OPERATOR NURSE FOR CONTINUITY OF CARE.
--- NOTE | 2020-11-18 20:00 | NUR ---
PATIENT WAS RECEIVED IN BED, ALERT BUT CONFUSED WITH SITTER BESIDE HIM. Addendum: 11/19/20 at 0025 by Jaun Chavez RN RN DISREGARD/ERASE NOTES ABOVE, ENTERED IN WRONG CHART.
--- NOTE | 2020-11-18 20:00 | NUR ---
PATIENT WAS RECEIVED IN BED, ALERT BUT CONFUSED, WITH SITTERS BESIDE HER.
[2020-11-18] MEDS: QUEtiapine FUMARATE 25 MG TAB PO SCH (20:54)
[2020-11-18] MEDS: DONEPEZIL 10 MG TAB PO SCH (20:54)
--- NOTE | 2020-11-18 21:00 | NUR ---
PATIENT WAS CONFUSED KEEPS ON GETTING OUT OF BED, ASKED IF SHE WANTED HELP TO GO TO SLEEP, PATIENT REPLIED "YES I WANTED TO GO SLEEP", MEDICATED WITH AMBIEN PO. ALL DUE MEDICATIONS WERE ALSO GIVEN PO, TOLERATED WELL BY THE PATIENT.
--- NOTE | 2020-11-18 21:00 | NUR ---
PATIENT WAS CONFUSED KEEPS ON GETTING UP OF BED, PIV WAS OUT, CHARGED NURSE BREANA HELPED TO OBTAIN PIV TO PATIENT'S LEFT FA, HYDRATION WAS CONTINUED.
--- NOTE | 2020-11-18 21:00 | NUR ---
BP WAS WITHIN NORMAL LIMIT, DUE MEDS WERE GIVEN CRUSHED WITH TERENCE FOODING. Addendum: 11/19/20 at 0022 by Jaun Chavez RN RN DISREGARD/ERASE ALL NOTES ABOVE, ENTERED IN WRONG CHART
[2020-11-18] MEDS: ZOLPIDEM 5 MG TAB PO PRN (21:01)
--- NOTE | 2020-11-18 22:00 | NUR ---
PATIENT WAS BEING WHEELED WITH W/C AROUND MST TO DISTRACT FROM BEING AGITATED Addendum: 11/19/20 at 0019 by Jaun Chavez RN RN DISREGARD/ERASE ALL NOTES ABOVE ENTER IN WRONG CHART.
--- NOTE | 2020-11-18 22:00 | NUR ---
PATIENT GOT UP ASSISTED TO THE BATHROOM BY RN AND WALLACE PLEITEZ NUMBER 1, AMBULATED BACK TO THE BED WITH MINIMAL ASSIST., CONNECTED BACK TO IV HYDRATION INFUSING NSS WELL AT 60 ML/HOUR, PIV TO LEFT FA WAS PATENT WITH GOOD BLOOD RETURN, FLUSHED WITH 5 ML NSS.
--- NOTE | 2020-11-19 | NUR ---
RN MADE MIDNIGHT ROUND, CALMLY ASLEEP.
[2020-11-19] MEDS: NACL 0.9% 1,000 ML IV SCH ×2 (04:00→18:00)
--- NOTE | 2020-11-19 06:20 | NUR ---
ALL REPORTS GIVEN, TRANSFER OF CARE ENDORSED
[2020-11-19 06:40] LABS: BASOPHILS % (AUTO) 0.8 % (0.0-2.0); EOSINOPHILS # (AUTO) 0.1 K/uL (0-0.4); EOSINOPHILS % (AUTO) 1.1 % (0.0-4.0); HEMATOCRIT 33.4 % (36-48); HEMOGLOBIN 11.5 g/dL (12.0-16.0); LYMPHOCYTES # (AUTO) 1.4 K/uL (2.5-16.5); LYMPHOCYTES % (AUTO) 26.9 % (20.5-51.1); MEAN CORPUSCULAR HEMOGLOBIN 35 pg (27-31); MEAN CORPUSCULAR HGB CONC 34 g/dL (33-37); MEAN CORPUSCULAR VOLUME 101.2 fL (80-94); MONOCYTES # (AUTO) 0.5 K/uL (0.8-1.0); MONOCYTES % (AUTO) 9.7 % (1.7-9.3); NEUTROPHILS # (AUTO) 3.2 K/uL (1.8-7.7); NEUTROPHILS % (AUTO) 61.5 % (42.2-75.2); PLATELET COUNT (AUTO) 193 K/uL (140-450); RED CELL DISTRIBUTION WIDTH 13.6 % (11.6-13.7); WHITE BLOOD COUNT (AUTO) 5.3 K/uL (4.8-10.8)
[2020-11-19 06:51] LABS: ANION GAP 10.4 (8-16); CARBON DIOXIDE 24.8 mmol/L (21-32); CHLORIDE 108 mmol/L (98-107); CREATININE 0.7 mg/dL (0.6-1.3); GLUCOSE 93 mg/dL (74-106); POTASSIUM 3.2 mmol/L (3.5-5.1); SODIUM SERUM 140 mmol/L (136-145); UREA NITROGEN, BLOOD 11 mg/dL (7-18)
[2020-11-19 07:04] LABS: MAGNESIUM 1.8 mg/dL (1.8-2.4); PHOSPHORUS 2.4 mg/dL (2.5-4.9)
--- NOTE | 2020-11-19 07:19 | NUR ---
RECEIVED REPORT FROM FARMER AND GRAZIER NURSE FOR CONTINUITY OF CARE, POC DISCUSSED. PT ASLEEP IN BED WITH CHEST RISING AND FALLING EVEN AND UNLABORED. NO S/S OF ACUTE DISTRESS. IV IN LEFT FOREARM 20 GAUGE RUNNING NS AT 60 ML. ALL SAFETY MEASURES IN PLACE, CALL LIGHT WITHIN REACH. WILL CONTINUE TO MONITOR.
--- NOTE | 2020-11-19 07:59 | NUR ---
PT ASSISTED TO BEDSIDE COMMODE, GOWN AND SHEETS CHANGED. PT NOW CLEAN. PT BACK IN BED. ALL SAFETY MEASURES IN PLACE. NO S/S OF ACUTE DISTRESS
[2020-11-19 08:00] VITALS: BP 159/66
[2020-11-19] MEDS: PANTOPRAZOLE 40 MG TABEC PO SCH (08:09)
[2020-11-19] MEDS: lisinopriL 20 MG TAB PO SCH (08:10)
[2020-11-19] MEDS: MEMANTINE 10 MG TAB PO SCH (08:10)
--- NOTE | 2020-11-19 08:15 | NUR ---
SCHEDULED MEDICATION ADMINISTERED. PT EDUCATION PROVIDED. ALL SAFETY MEASURES IN PLACE. CALL LIGHT WITHIN REACH. WILL CONTINUE TO MONITOR.
[2020-11-19] MEDS ORDERED: PANT40EC56 PO (08:53)
[2020-11-19] MEDS ORDERED: DOCU-299 PO (08:53)
[2020-11-19] MEDS ORDERED: MEMA10TA PO (08:53)
[2020-11-19] MEDS ORDERED: QUET25TA46 PO (08:53)
[2020-11-19] MEDS ORDERED: DONE10TA10 PO (08:53)
[2020-11-19] MEDS ORDERED: LISI20TA29 PO (08:53)
[2020-11-19] MEDS ORDERED: POTASSIUM PHOSPHATE 15 MM in NACL 0.9% 250 ML IV ONE (09:30)
--- NOTE | 2020-11-19 10:07 | NUR ---
ONE TIME BAG OF POTASSIUM HUNG PER MD ORDER. PT EDUCATION PROVIDED. PT IS IN BED WITH NO SIGNS OF ACUTE DISTRESS. SAFETY MEASURES IN PLACE, CALL LIGHT WITHIN REACH. WILL CONTINUE TO MONITOR.
--- NOTE | 2020-11-19 10:12 | NUR ---
[facility] still working on placement at this time. No new updates.
--- NOTE | 2020-11-19 12:01 | NUR ---
SPOKE WITH PT SISTER, PT VERBALIZED THATS OKAY. ALL QUESTIONS ANSWERED.
--- NOTE | 2020-11-19 12:45 | NUR ---
ASSISTED PT TO BED SIDE COMMODE. PT VOIDED. PT BACK IN BED, IN STABLE CONDITION AND VERBALIZED ALL NEEDS ARE MET. BED ALARM ON, CALL LIGHT WITHIN REACH. WILL CONTINUE TO MONITOR.
--- NOTE | 2020-11-19 14:52 | NUR ---
SPOKE WITH [facility], UNABLE TO FIND BED AVAILABLE AT THIS TIME. ATTEMPTING TO FIND PLACEMENT.
--- NOTE | 2020-11-19 15:57 | NUR ---
PT ENDORSED TO SIWI RN FOR CONTINUITY OF CARE. POC DISCUSSED. PT IN STABLE CONDITION
--- NOTE | 2020-11-19 15:58 | NUR ---
RECEIVED REPORT FROM FIELD TECHNICAL SPECIALIST RN FOR CONTINUITY OF CARE. PATIENT IS CONFUSED, FALL RISK, BED ALARM ON. BEDSIDE COMMODE. IVF INFUSING ORDERED. WILL CONTINUE TO CLOSELY TO MONITOR.
[2020-11-19 16:00] VITALS: BP 121/65
--- NOTE | 2020-11-19 19:30 | NUR ---
ENDORSED TO NIGHTSHIFT NURSE FOR CONTINUITY OF CARE. PATIENT IN STABLE CONDITION. PATIENT REMAINS ON ROOM AIR NO DISTRESS NOTED. ALL SAFETY MEASURES IN PLACE.
--- NOTE | 2020-11-19 19:30 | NUR ---
RECEIVED REPORT FROM AM NURSE FOR CONTINUITY OF CARE. PATIENT IS AWAKE, ALERT AND ORIENTED X1-2. RESPIRATORY EVEN AND UNLABORED, ON ROOM AIR, NO SIGN OF DISTRESS NOTED. SKIN WARM, DRY, NON DIAPHORETIC. IV ON LEFT FA 20G, INTACT AND PATENT, IS INFUSING FLUID @60ML/HR. PATIENT DENIES ANY PAIN OR DISCOMFORT. ABLE TO VERBALIZE NEEDS. PLAN OF CARE DISCUSSED. PRECAUTION IN PLACE. CALL LIGHT WITHIN REACH. WILL CONTINUE TO MONITOR.
[2020-11-19 20:00] VITALS: BP 107/59
[2020-11-19] MEDS: QUEtiapine FUMARATE 25 MG TAB PO SCH (20:16)
[2020-11-19] MEDS: DONEPEZIL 10 MG TAB PO SCH (20:17)
--- NOTE | 2020-11-19 20:17 | NUR ---
SCHEDULE MEDICATIONS GIVEN WITH EDUCATION, PATIENT VERBALIZED UNDERSTANDING. ABLE TO VERBALIZED NEEDS. PRECAUTION IN PLACE. CALL LIGHT WITHIN REACH. WILL CONTINUE TO MONITOR.
--- NOTE | 2020-11-19 22:06 | NUR ---
ASSIST PATIENT TO USE BEDSIDE COMMODE. PATIENT TOLERATED WELL. NO SIGN OF DISTRESS. PRECAUTION IN PLACE. CALL LIGHT WITHIN REACH. WILL CONTINUE TO MONITOR.
--- NOTE | 2020-11-19 23:55 | NUR ---
ASSIST PATIENT USING BEDSIDE COMMODE. PATIENT TOLERATED WELL. NO SIGN OF DISTRESS NOTED. PRECAUTION IN PLACE. CALL LIGHT WITHIN REACH. WILL CONTINUE TO MONITOR.
--- NOTE | 2020-11-20 02:00 | NUR ---
ROUND CHECK. PATIENT IS SLEEPING, CHEST RISE AND FALL, NO SIGN OF DISTRESS. PRECAUTION IN PLACE. CALL LIGHT WITHIN REACH. WILL CONTINUE TO MONITOR.
[2020-11-20 04:00] VITALS: BP 129/53
--- NOTE | 2020-11-20 04:00 | NUR ---
ROUND CHECK. PATIENT IS SLEEPING, CHEST RISE AND FALL NOTED, NO SIGN OF DISTRESS. PRECAUTION IN PLACE. CALL LIGHT WITHIN REACH. WILL CONTINUE TO MONITOR.
--- NOTE | 2020-11-20 06:05 | NUR ---
HYDROGEOLOGIST ASSIST PATIENT TO USE BEDSIDE COMMODE, PATIENT TOLERATED WELL. NO SIGN OF DISTRESS NOTED. WILL CONTINUE TO MONITOR.
[2020-11-20 06:46] LABS: BASOPHILS % (AUTO) 0.6 % (0.0-2.0); EOSINOPHILS # (AUTO) 0.1 K/uL (0-0.4); HEMATOCRIT 31.2 % (36-48); HEMOGLOBIN 10.6 g/dL (12.0-16.0); LYMPHOCYTES # (AUTO) 1.6 K/uL (2.5-16.5); MEAN CORPUSCULAR HEMOGLOBIN 34 pg (27-31); MEAN CORPUSCULAR HGB CONC 34 g/dL (33-37); MEAN CORPUSCULAR VOLUME 100.6 fL (80-94); MONOCYTES # (AUTO) 0.6 K/uL (0.8-1.0); MONOCYTES % (AUTO) 11.8 % (1.7-9.3); NEUTROPHILS % (AUTO) 56.6 % (42.2-75.2); PLATELET COUNT (AUTO) 173 K/uL (140-450); RED CELL DISTRIBUTION WIDTH 13.7 % (11.6-13.7); WHITE BLOOD COUNT (AUTO) 5.3 K/uL (4.8-10.8)
[2020-11-20 06:54] LABS: ANION GAP 8.4 (8-16); CARBON DIOXIDE 26.9 mmol/L (21-32); CHLORIDE 109 mmol/L (98-107); CREATININE 0.7 mg/dL (0.6-1.3); GLUCOSE 88 mg/dL (74-106); POTASSIUM 3.3 mmol/L (3.5-5.1); SODIUM SERUM 141 mmol/L (136-145); UREA NITROGEN, BLOOD 12 mg/dL (7-18)
[2020-11-20 07:00] LABS: MAGNESIUM 1.8 mg/dL (1.8-2.4); PHOSPHORUS 2.9 mg/dL (2.5-4.9)
--- NOTE | 2020-11-20 07:20 | NUR ---
ENDORSED PATIENT TO AM NURSE FOR CONTINUITY OF CARE. PATIENT IS STABLE.
--- NOTE | 2020-11-20 07:22 | NUR ---
RECEIVED REPORT FROM NIGHTSHIFT NURSE. ACCORDING TO RN PT WAS BROUGHT IN BY POLICE DEPARTMENT FOR WRONGSIDE DRIVING. PT IS ON A 5150 AND IT IS EXPIRES 11/20/2020 AT 1345. PT HAS A PMH OF DEMENTIA, ARTHRITIS, AND A LEFT HIP FRACTURE. PT CAME FROM HOME. PT IS a&ox1-2. she is alert to name and day. PT IS ON A REGULAR DIET WITH ENSURE BID. PT HAS A RFA 20G IV. SKIN IS INTACT. PT'S FAMILY WANTS TO SEND PT TO A SNF, THEREFORE AWAITING PLACEMENT. CALL LIGHT IS WITHIN REACH. SAFETY PRECAUTIONS IN PLACE. WILL CONTINUE TO MONITOR.
[2020-11-20 08:00] VITALS: BP 129/60
[2020-11-20] MEDS: MEMANTINE 10 MG TAB PO SCH (08:55)
[2020-11-20] MEDS: PANTOPRAZOLE 40 MG TABEC PO SCH (08:55)
[2020-11-20] MEDS: lisinopriL 20 MG TAB PO SCH (08:56)
--- NOTE | 2020-11-20 08:56 | NUR ---
ADMINISTERED SCHEDULED MEDICATIONS PER MD ORDER. CALL LIGHT WITHIN REACH. PT IS DRINKING ENSURE. SAFETY PRECAUTIONS IN PLACE. WILL CONTINUE TO MONITOR.
[2020-11-20] MEDS: POTASSIUM CHLORIDE 10 MEQ TABER PO PRN (08:57)
--- NOTE | 2020-11-20 10:21 | NUR ---
PT'S SISTER ASKED HOW PT WAS DOING AND IF PT WAS GOING TO BE TRANSFERRED TODAY. PT'S SISTER WAS INFORMES THAT PT IS AWAITING TRANSFER.
[2020-11-20] MEDS: NACL 0.9% 1,000 ML IV SCH (10:40)
--- NOTE | 2020-11-20 12:55 | NUR ---
CONTACTED [facility] TO GIVE REPORT ON PT'S STATUS AND PLAN. TALED TO YESENIA JARRELL AND GAVE HER SBAR. CHRYSTAL PATTERSON ENDORSED REPORT. TRIED TO GET A HOLD OF SON, MR. ANEESH BRAY TWO TIMES AND NO ANSWER. I LEFT A VOICE MESSAGE TO MR. ANEESH BRAY LETTING HIM KNOW PRATIMA HIS MOM WAS GOING TO BE TRANSFERRED TO [facility] WITH THE ADDRESS OF [facility] [facility], [id number], PHONE NUMBER . PT IS NOT AWAITING TRANSFER TO SNF FACILITY. CALL LIGHT IS WITHIN REACH. SAFETY PRECAUTIONS IN PLACE. WILL CONTINUE TO MONITOR.
--- NOTE | 2020-11-20 13:44 | NUR ---
DC PLANNING: PT IS ACCEPTED AT [facility] ADDRESS [address] [id number] GOING TO ROOM 112A # TO GIVE REPORT [phone]. ARRANGED TRANSPORT WITH [facility] TIME 6 PM . NOTIFIED PATRICK JARRELL. NOTIFIED PT'S SON ANEESH, PROVED THE ADDRESS AND PHONE NUMBER. CM TO FOLLOW
[2020-11-20 16:00] VITALS: BP 139/62
--- NOTE | 2020-11-20 18:30 | NUR ---
DISCHARGED INSTRUCTION GIVEN TO PT AT BEDSIDE AND ENCOURAGED TO CONTINUE MEDICATIONS AND TO SEEK MEDICAL HELP IN CASE OF EMERGENCY. CHANGED PT CLOTHES AND GAVE PT BELONGINGS. REMOVED ID BANDS AND IV COMPLETE AND NO BLEEDING. [facility]. PT IS STABLE.
== END 2020-11-20 18:30 | DRG 640 ==
LOC: MED 16:44 → MMU 19:03 → MTU 19:43
PROVIDERS: ADMIT Family Medicine; ATTEND Family Medicine
DX: E86.0 Dehydration (principal); G93.41 Metabolic encephalopathy; E44.1 Mild protein-calorie malnutrition; Z68.1 Body mass index [BMI] 19.9 or less, adult; F03.90 Unspecified dementia, unspecified severity, without behavioral disturbance, psychotic disturbance, mood disturbance, and anxiety; E87.6 Hypokalemia; E83.39 Other disorders of phosphorus metabolism; F17.210 Nicotine dependence, cigarettes, uncomplicated; Z60.2 Problems related to living alone; D53.9 Nutritional anemia, unspecified; R26.9 Unspecified abnormalities of gait and mobility; E02 Subclinical iodine-deficiency hypothyroidism; Z20.822 Contact with and (suspected) exposure to COVID-19; Z73.6 Limitation of activities due to disability
CPT/HCPCS: 36415; 70450; 71045; 80048; 80053; 80305; 81003; 82150; 83036; 83605; 83690; 83735; 83880; 84100; 84436; 84439; 84443; 84479; 84484; 85025; 85610; 85730; 87040; 87081; 87086; 92610; 92700; 96365; 97110; 97112; 97116; 97163-GP; 97530; 99285; G0480; G0482; J0696; J7030; U0003